=== PATIENT | male | born 1955 | race Caucasian/White ===

== ENCOUNTER 2016-08-24 15:44 | Inpatient (IN) ==
[2016-08-24] MEDS ORDERED: D5 1/2 NS 1,000 ML IV SCH (16:07)
[2016-08-24] MEDS ORDERED: D5 1/2 NS 1,000 ML ONE (16:13)
[2016-08-24 16:43] LABS: MANUAL DIFF NEEDED? NO
[2016-08-24 16:44] LABS: BASO% 0.2 % (0.0-0.8); EOS# 0.01 X1000 (0.0-0.7); EOS% 0.1 % (0.0-10.0); HEMATOCRIT 42.7 % (42.0-52.0); HEMOGLOBIN 14.7 g/dL (14.0-18.0); LYMPH# 1.53 X1000 (1.2-3.4); MCH 29.2 PG (27-31); MCHC 34.4 g/dL (33-37); MCV 84.7 FL (81-99); MONO# 1.21 X1000 (0.11-0.59); MONO% 13.5 % (1.7-9.3); MPV 11.5 FL (7.4-10.4); NEUT% 69.2 % (42.2-75.2); PLT 357 X1000 (130-400); RBC 5.04 XMIL (4.7-6.1)
[2016-08-24] MEDS ORDERED: D5 1/2 NS 1,000 ML IV ONE (16:45)
[2016-08-24 17:27] LABS: ALBUMIN 4.6 g/dL (3.5-5.0); POTASSIUM 4.6 mmol/L (3.5-5.1); TOTAL BILIRUBIN 0.19 mg/dL (0.20-1.00); TOTAL PROTEIN 8.5 g/dL (6.3-8.3)
[2016-08-24] MEDS ORDERED: ZOFRAN IV PRN (18:02)
--- NOTE | 2016-08-24 18:46 | HISTORY AND PHYSICAL ---
CHIEF COMPLAINT: "Have not had urination in 4 days or a bowel movement in 2 days." HISTORY OF PRESENT ILLNESS: He was in my office a few days ago with a gastroenteritis that had started on Sunday. I saw him 2 days ago in the office, and at that time he was having diarrhea. I gave him some Lomotil and some Zofran. When came to the office his blood pressure today it was good, but he said he had not urinated in 4 days, so I sent him to the emergency room as an outpatient to get some IV fluids and some lab work. In the emergency room his blood pressure did fall to 91/46, pulse was 76, but he has been on verapamil which would block his heart rate so he has become hypotensive. His creatinine is 11, and BUN is 126. Sodium is 123. White count 6980, hemoglobin is 14.7. PAST HISTORY: Includes BPH, hyperlipidemia, hypertension. SURGICAL HISTORY: Includes a hernia repair x3, apnea, throat surgery for deviated septum, thumb repair. FAMILY HISTORY: All siblings are currently healthy and alive. Father from a CVA. Mother from unknown causes. Mother did have diabetes. Father did have alcoholism. Father did have gout. SOCIAL HISTORY: Former smoker. Does not smoke or use tobacco now. Occasional alcohol user, drinks about 10 drinks a week. CURRENT MEDICATIONS: Crestor 20 mg at bedtime. Fenofibric acid 135 mg at bedtime. Indapamide 2.5 mg daily. Lisinopril 40 mg twice daily. Verapamil 200 mg daily. Zetia 10 mg daily. REVIEW OF SYSTEMS: Neurological: Denies headaches, seizures, visual problems, hearing problems. Pulmonary: Denies cough, wheezing, shortness of breath. Cardiovascular: Denies chest pains, heart palpitations, PND, orthopnea. GI: Has had nausea, vomiting and diarrhea, but this ended 2 days ago. But he has had no other bowel movements. No urination. : Has had no urination, he says, in 4 days. Psychiatric: Denies any depression. Musculoskeletal: Denies any arthritis symptoms. PHYSICAL EXAMINATION: Blood pressure is 91/46, respirations 14, pulse 76, temperature 98 degrees Fahrenheit, O2 saturations 98%. HEENT: Normocephalic. EOMs intact. PERRLA. Throat clear. LUNGS: Clear to auscultation and percussion without rhonchi, rales, or wheezes. HEART: Regular rate rhythm without murmurs, gallops, or friction rubs. ABDOMEN: Soft. Active bowel sounds. No organomegaly or tenderness. NEUROLOGICAL: Cranial nerves 2-12 intact grossly. Sensory and motor intact. Reflexes 1+ all. RECTAL EXAM: Deferred. EXTERNAL GENITALIA EXAM: Deferred. INTEGUMENT: Shows no lesions consistent with melanoma, other skin cancers. LYMPH NODES: Nonpalpable in cervical, supraclavicular areas. ASSESSMENT: 1. Acute renal failure. 2. Dehydration. 3. Gastroenteritis. 4. Hypertension. 5. Hypotension. PLAN: We will admit for IV fluids. We will consult Nephrology. Certainly with his dehydration, his lisinopril, could contribute to some of his renal failure as well, and his indapamide contribute to some of his dehydration. He said that when he was having diarrhea he was going about every 30 minutes for 2 days. cc: Junaid Sterling Jr, MD
--- NOTE | 2016-08-24 18:50 | EKG Report ---
Test Performed on : 08/24/2016 6:29:29 PM Test Reason : renal failure Blood Pressure : / mmHG Vent. Rate : 074 BPM Atrial Rate : 074 BPM P-R Int : 182 ms QRS Dur : 096 ms QT Int : 378 ms P-R-T Axes : 036 012 027 degrees QTc Int : 419 ms Poor data quality, interpretation may be adversely affected Normal sinus rhythm. Low voltage QRS Cannot rule out Anterior infarct , age undetermined Abnormal ECG No previous ECGs available Unconfirmed Result
[2016-08-24] MEDS: NS 1,000 ML IV SCH (19:35)
[2016-08-25] MEDS: NS 1,000 ML IV SCH ×5 (00:01→20:16)
[2016-08-25 06:18] LABS: BASO% 0.1 % (0.0-0.8); EOS# 0.04 X1000 (0.0-0.7); EOS% 0.5 % (0.0-10.0); HEMATOCRIT 35.3 % (42.0-52.0); HEMOGLOBIN 12.3 g/dL (14.0-18.0); LYMPH# 1.69 X1000 (1.2-3.4); LYMPH% 19.4 % (20.5-51.1); MANUAL DIFF NEEDED? NO; MCH 29.3 PG (27-31); MCHC 34.8 g/dL (33-37); MONO# 1.15 X1000 (0.11-0.59); MONO% 13.2 % (1.7-9.3); MPV 11.1 FL (7.4-10.4); NEUT% 66.8 % (42.2-75.2); PLT 259 X1000 (130-400)
[2016-08-25 07:08] LABS: CALCIUM 7.3 mg/dL (8.8-10.2); POTASSIUM 4.4 mmol/L (3.5-5.1)
--- NOTE | 2016-08-25 07:27 | Diag Imaging Result Doc PS360 ---
CHEST-2 VIEWS - 08/24/2016 INDICATION: abd pain TECHNIQUE: COMPARISON: None FINDINGS: There is scattered linear opacity in the lung bases suggesting scarring or atelectasis. No focal infiltrates, pneumothorax, or pleural effusion. Heart size is grossly normal. IMPRESSION: Scattered atelectasis or scarring in the lung bases but no suspicious infiltrates. Electronically signed by Dario Caba 08/25/2016 7:25 AM
--- NOTE | 2016-08-25 07:34 | Diag Imaging Result Doc PS360 ---
ABDOMEN FLAT/UPRIGHT - 08/24/2016 INDICATION: abd pain TECHNIQUE: COMPARISON: None FINDINGS: There are greater than the normal number of air-fluid levels on the upright exam. There are some moderately gas dilated loops of small bowel measuring up to 3.5 cm. No free air. IMPRESSION: Findings concerning for small bowel ileus or obstruction. Electronically signed by Dario Caba 08/25/2016 7:32 AM
[2016-08-25 07:35] LABS: URINE CULTURE NEEDED? NO; URINE SOURCE CLEAN CATCH
[2016-08-25 07:40] LABS: BILIRUBIN URINE NEGATIVE (NEGATIVE); BLOOD URINE TRACE (NEGATIVE); COLOR YELLOW; GLUCOSE URINE TRACE mg/dL (NEGATIVE); LEUKOCYTES URINE NEGATIVE (NEGATIVE); NITRITE URINE NEGATIVE (NEGATIVE); PROTEIN URINE 30 mg/dL (NEGATIVE); SP GRAVITY URINE 1.011; TURBIDITY URINE HAZY (CLEAR); UROBILINOGEN URINE NORMAL (NORMAL)
[2016-08-25 07:42] LABS: UR EPITHELIAL CELLS <10 /HPF (<10); URINE BACTERIA NEGATIVE /HPF; URINE MICRO REVIEW NEEDED? YES; URINE RBC <10 /HPF (<10); URINE WBC <10 /HPF (<10)
[2016-08-25 07:48] LABS: URINE CASTS NONE SEEN; URINE CRYSTALS CA OXALATE PRESENT; URINE SMALL ROUND CELLS NONE SEEN
[2016-08-25 07:55] LABS: UR CREAT RANDOM 84.1 mg/dL (14-26); UR PROT RANDOM 40.1 mg/dL
[2016-08-25 09:34] LABS: ALLEN TEST YES; BLOOD TYPE ARTERIAL; DRAW SITE R RADIAL; O2(CT) 16.7 mL/dL (15.0-23.0); PCO2(98.6) 31 mmHg (35-45); PO2(98.6) 77 mmHg (60-100); SAMPLE BLOOD; SAO2 94.9 % (95.0-100.0); THB 12.8 g/dL (11.5-17.4)
[2016-08-25 09:37] LABS: MODALITY ROOM AIR; pH(98.6) 7.17 (7.35-7.45)
--- NOTE | 2016-08-25 09:55 | PROGRESS NOTE ---
DATE: 08/25/2016 SUBJECTIVE: The patient says he still has a little abdominal discomfort. It is not severe. He did finally produce some urine. OBJECTIVE: Vital Signs: Blood pressure 94/54, respirations 20, temp 97.6 degrees Fahrenheit. White count is 8710, hemoglobin is 12.3, creatinine actually went up to 12.5 and BUN went up to 132. Sodium loreto from 123-129. Renal ultrasound is pending. Chest x-ray is essentially clear. Abdominal films showed a possible early small bowel obstruction. HEENT: Normocephalic. EOMs intact. PERRLA. Throat clear. Lungs: Clear to auscultation and percussion without rhonchi, rales, or wheezes. Heart: Regular rate rhythm without murmurs, gallops, or friction rubs. Abdomen: Somewhat distended but just slightly, so not much pain on palpation. He has decreased bowel sounds, but I do hear a few. Neurological: Intact grossly. He did put out 500 mL of urine. Urinalysis was essentially normal. ASSESSMENT: 1. Acute kidney injury. 2. Dehydration. 3. Hypotension. 4. Acute gastroenteritis. 5. Possible small bowel obstruction. 6. Hypertension. 7. Had been on lisinopril. PLAN: We will consult GI and surgery. We will get a CT scan of the abdomen without contrast. We will get a urine myoglobin. Appreciate help from Dr. Braxton with Nephrology. cc: Junaid Sterling Jr, MD
--- NOTE | 2016-08-25 11:31 | Diag Imaging Result Doc PS360 ---
EXAM: ABDOMEN/PELVIS W/O CONTRAST HISTORY: ?sbo TECHNIQUE: CT urogram without contrast COMMENT: There is no evidence of bowel obstruction. There is some gas in the rectum. There is diverticulosis in the sigmoid colon without definite evidence of active diverticulitis. The appendix is not distended. There is perinephric stranding bilaterally without evidence of hydronephrosis. There are two small stones in the right collecting system the largest of which measures less than 3 mm. The gallbladder is distended without definite stones. The liver spleen adrenal glands and pancreas are grossly normal in the absence of IV contrast. No abnormal fluid collections are present. The urinary bladder is not particularly distended. There is some spondylosis in the lumbar spine. There is fibrosis and/or atelectasis in the left lower lobe. No previous studies are available for comparison. IMPRESSION: Perinephric stranding which may indicate nephritis. Minimal nephrolithiasis without evidence of ureterolithiasis. No evidence of bowel obstruction. The findings were discussed with Jasper Llanes MD at 08/25/2016 11:20 AM. Electronically signed by Bob Patel 08/25/2016 11:29 AM
--- NOTE | 2016-08-25 12:03 | Diag Imaging Result Doc PS360 ---
US RENAL 2 (RETROPER) COMPLETE - 08/25/2016 INDICATION: decreased renal function TECHNIQUE: COMPARISON: CT abdomen pelvis from earlier 08/25/2016 FINDINGS: The kidneys and urinary bladder are normal. No mass or fluid collection. No hydronephrosis. The right kidney measures 12.5 x 6.2 x 7.2 cm. Cortex measures 14 mm. The left kidney measures 12.5 x 5.1 x 6.5 cm. Cortex measures 13 mm. IMPRESSION: Negative exam. Electronically signed by Dario Caba 08/25/2016 12:01 PM
--- NOTE | 2016-08-25 12:58 | CONSULTATION ---
DATE OF CONSULTATION: 08/25/2016 Mr. Monisha Davalos is a 60-year-old white male, patient of Dr. Junaid Sterling. Approximately 6 days ago he began feeling poorly with significant diarrhea, and 1 day later began experiencing vomiting. He stated that his diarrhea began Sunday night and he would go frequently and quickly it became liquid with no blood. He began vomiting the day after Sunday. He saw Dr. Sterling in his outpatient office on Sunday and was treated with medications including Lomotil. He noticed that he had decreased urine output and was lightheaded the next 24-48 hours, and again saw Dr. Sterling on . He was sent to the emergency department for fluids and it was noted that his labs were grossly abnormal with a creatinine of 12.5 and he was admitted for further evaluation. He feels sore all over. He has mild abdominal pain upper abdomen and he attributes that to vomiting. PAST MEDICAL HISTORY: He has had surgery for sleep apnea. He has had an umbilical hernia repair and also inguinal hernia repairs. He has hypertension and high cholesterol. MEDICATIONS: 1. Zetia. 2. Verapamil. 3. Lisinopril. 4. Indapamide. 5. Nexium. 6. Fenofibrate acid. 7. Krill oil. ALLERGIES: No known drug allergies. SOCIAL HISTORY: He works as a electronics maintenance technician. He does not smoke. He drinks 8-9 beers or wine per week. He is . He lives outside of [place]. His was at the bedside. FAMILY HISTORY: Noncontributory. REVIEW OF SYSTEMS: A 14-point review of systems was performed and except for this recent illness, he was feeling well. PHYSICAL EXAMINATION: General: Mr. Davalos is a middle aged, white male. He is overweight. He looks tired but he is in no acute distress. HEENT Exam: He has no jaundice. No oral lesions. No cervical or supraclavicular lymphadenopathy. Heart: Regular rate. Lungs: Clear to auscultation and percussion bilaterally. Abdomen: His abdomen is mostly soft. He has a well- healed curvilinear incision below his umbilicus. He has well-healed inguinal incisions. He has no recurrent hernia. No evidence of incarcerated hernia. No costovertebral tenderness. No palpable mass. Rectal Exam: Was not performed. He does have palpable femoral pulses. He has no peripheral edema. Neurological: He is alert and oriented x3 and appropriate without focal deficit. DIAGNOSTIC DATA: A CT scan of his abdomen and pelvis performed today was essentially normal. There was no evidence of bowel obstruction or intra-abdominal infection or inflammation. I reviewed it with Dr. Patel. His blood work is abnormal with a marked BUN and creatinine elevation. His white blood cell count is normal. He was acidotic on admission. IMPRESSION: Diarrhea and vomiting with dehydration, and now acute renal failure. He essentially has a normal CT scan of the abdomen. PLAN: No plans for intra-abdominal surgery at this time. If he needs access for acute hemodialysis, certainly we will we will be available. Nephrology has been consulted, as has GI medicine. cc: MD Junaid Rojas Jr, MD
--- NOTE | 2016-08-25 13:04 | CONSULTATION ---
DATE OF CONSULTATION: 08/25/2016 REASON FOR REFERRAL: Possible ileus versus bowel obstruction. HISTORY OF PRESENT ILLNESS: This is a 60-year-old patient who reports onset of symptoms Sunday night. He had onset of diarrhea and vomiting for 2 days. He presented to Dr. Sterling' office as an outpatient and was treated for possible gastroenteritis. He was given Lomotil and Zofran. He presented back to his office yesterday and was found to have elevated BUN and creatinine with low blood pressure. He was admitted to the hospital for further evaluation. He has been seen by Dr. Braxton and workup for acute kidney injury. He had an abdominal x-ray on 2016 that showed a possible small bowel ileus or obstruction. He had an abdominal/pelvis CT scan today that showed perinephric stranding, possible nephritis, minimal nephrolithiasis without evidence of ureterolithiasis with no evidence of bowel obstruction. He had a renal ultrasound which he has just returned from. Findings showed normal kidneys and urinary bladder. No mass or fluid collection. No hydronephrosis and negative exam. Patient reports some generalized abdominal pain. He has not had a bowel movement since admission. He denies vomiting today. He had episodes of nausea and vomiting starting on Sunday night along with diarrhea. He has had a colonoscopy in the past. PAST MEDICAL HISTORY: For BPH, hyperlipidemia, hypertension. PAST SURGICAL HISTORY: Hernia repair, sleep apnea surgery, throat surgery for deviated septum, thumb repair. ALLERGIES: No known drug allergies. HOME MEDICATION LIST: None listed. SOCIAL HISTORY: History of tobacco use, quit. Occasional alcohol use. REVIEW OF SYSTEMS: Per HPI. PHYSICAL EXAM: Vital Signs: Temperature 97.6 degrees, pulse 85, respirations 20, blood pressure 94/54. General: Patient is awake, alert, no acute distress. HEENT: Normocephalic, atraumatic. Pupils equal, round, reactive to light. Sclerae nonicteric. Respiratory: Clear bilaterally. Cardiovascular: Regular rate and rhythm. Abdomen: Some distention, mild pain with palpation. Hypoactive bowel sounds. LABORATORY: Hematology: White count 8.71, hemoglobin 12.3, hematocrit 35.3, MCV 84.0, platelets 259,000. Chemistry: Sodium 129, potassium 4.4, chloride 84, CO2 11. BUN 132, creatinine 12.5, glucose 77, total bilirubin 0.19. AST 88, ALT 15, alkaline phosphatase 43. CT scan and renal ultrasound results as described above. ASSESSMENT AND PLAN: 1. Acute kidney injury. 2. Dehydration. 3. Hypotension. 4. Recent gastroenteritis. PLAN: Continue supportive care. A CT scan showing no evidence of obstruction. Ileus most likely related to recent anti-diarrheal medications. GI will be available and continue to follow. Continue recommendations per Dr. Braxton. I have discussed this case with Dr. Brice. Further plans per him. Thank you for this consultation. Dictated by TITUS Rodriguez for Escobar Brice MD cc: TITUS Byrnes MD Roger H. Moss Jr, MD MTDD
--- NOTE | 2016-08-25 14:30 | CONSULTATION ---
DATE OF CONSULTATION: 08/25/2016 REASON FOR CONSULTATION: Acute kidney injury. HISTORY OF PRESENT ILLNESS: Mr. Davalos is a 60-year-old white male who states he was in his normal health until about 5 days ago, when he began having diarrhea. This began on Sunday afternoon and was followed by nausea and vomiting. He was unable to keep down any p.o. intake over the next 72 hours. In this context, he noted low to no urine output. He did not notice any changes in his urine, but again, the volume has been low. No chills or fevers. No abdominal pain or cramping. No one else has been sick at home. No swelling, chest pain, palpitations, or voiding symptoms etc. He has had difficulty even keeping down his medication during the last week. PAST MEDICAL HISTORY: Hypertension, hyperlipidemia, BPH. HOME MEDICATIONS: Crestor, fenofibrate, indapamide, lisinopril, verapamil, Zetia. ALLERGIES: None. SOCIAL HISTORY: He is a former smoker. He occasionally drinks. FAMILY HISTORY: Noncontributory. REVIEW OF SYSTEMS: Otherwise noncontributory. PHYSICAL EXAMINATION: Vital Signs: Blood pressure 94/54, heart rate 85, respirations 20, afebrile. Intake and output are incomplete. General: In no acute distress. Skin: Warm and dry. HEENT: Conjunctivae are pink. Pupils are equal. Neck: No jugular venous distention. Oropharynx is clear. Oropharynx is moist. Neck: Neck veins are not distended. Trachea is midline. Heart: Regular with a physiologically split S2. No murmurs or rubs. Lungs: Have equal excursion, equal breath sounds. No crackles or wheezes. Abdomen: Soft and nontender, with normal bowel sounds. No organomegaly, masses, or bruits. Extremities: Have no edema, clubbing, or cyanosis. LABORATORY DATA: Sodium 129, potassium 4.4, chloride 84, bicarbonate 11, BUN 132, creatinine 12.5. Hemoglobin 12.3. pH 7.17, pCO2 of 31, and PO2 of 77. IMPRESSION: Acute kidney injury, presumably related to acute gastrointestinal illness resulting in intravascular volume depletion in the context of an DUSTY inhibitor. His urine output has been very low for days, but is slowly improving after he has been receiving IV fluids. He does not have any acute indications for dialysis, so we will simply follow him as he receives IV fluids and reassess his kidney function. Certainly, he could have acute tubular necrosis. Other less likely scenarios include a primary glomerular lesion. We will have him undergo a kidney ultrasound and collect urine electrolytes, urine eosinophils, urinalysis, and renal ultrasound. His ABG was ordered at the time of my assessment and is available. Although he does have significant metabolic acidosis, his respiratory compensation is near target. No changes. cc: MD Junaid Walton Jr, MD
[2016-08-26] MEDS: NS 1,000 ML IV SCH ×5 (04:49→22:06)
[2016-08-26 06:56] LABS: BASO% 0.6 % (0.0-0.8); EOS# 0.04 X1000 (0.0-0.7); EOS% 0.8 % (0.0-10.0); HEMATOCRIT 33.9 % (42.0-52.0); HEMOGLOBIN 11.8 g/dL (14.0-18.0); LYMPH# 1.56 X1000 (1.2-3.4); MANUAL DIFF NEEDED? NO; MCH 29.2 PG (27-31); MCHC 34.8 g/dL (33-37); MCV 83.9 FL (81-99); MONO# 0.67 X1000 (0.11-0.59); MONO% 13.7 % (1.7-9.3); NEUT% 52.9 % (42.2-75.2); PLT 253 X1000 (130-400); RBC 4.04 XMIL (4.7-6.1)
[2016-08-26 07:23] LABS: POTASSIUM 4.3 mmol/L (3.5-5.1)
[2016-08-26 07:37] LABS: CALCIUM 6.8 mg/dL (8.8-10.2)
[2016-08-26] MEDS ORDERED: CALCIUM GLUCONATE 2 GM in NS 100 ML IV ONE (09:12)
--- NOTE | 2016-08-26 12:48 | PROGRESS NOTE ---
DATE: 08/26/2016 SUBJECTIVE: The patient is starting to feel better. He has been eating some. OBJECTIVE: Vital Signs: Blood pressure 94/51; earlier, it was 86/48. Respirations 18, pulse 81, temperature 97.9 degrees Fahrenheit. HEENT: Normocephalic. EOMs intact. PERRLA. Throat clear. Lungs clear to auscultation and percussion without rhonchi, rales, or wheezes. Heart: Regular rate rhythm without murmurs, gallops, or friction rubs. Abdomen is soft with minimal tenderness diffusely. Neurological exam intact grossly. White count 4880, hemoglobin 11.8, hematocrit 33.9, sodium is up from 123 to 129 ; today, it is 135. Potassium is 4.3, chloride which had been low is 74; it came up to 84 and , today, is 102. Anion gap was 19, creatinine which was initially 11 went up to 12.5 and, today, it is 6.5. BUN 126-132. Calcium initially was 9 and then fell to 7.3, and this morning it is 6.8. I do not have an albumin for today but initial albumin was normal. Patient has been acidotic with a pH of 7.17 yesterday. I have continued to give IV fluids. Seems to be improving. ASSESSMENT: 1. Acute kidney injury and renal failure. 2. Dehydration. 3. Acute gastroenteritis. 4. Acidosis. 5. Questionable bowel obstruction now appears to be all right per CT scan. 6. Low calcium, and we will replace with calcium gluconate. cc: Junaid Sterling Jr, MD MTDD
--- NOTE | 2016-08-26 14:51 | PROGRESS NOTE ---
DATE: 08/26/2016 Monisha Davalos is a 60-year-old male who is now hospital day 2. He was hospitalized with acute renal failure and ileus. We are asked to evaluate him because of his ileus. He had evidence of gastroenteritis with diarrhea and nausea and vomiting with dehydration which was felt to cause his acute renal failure in addition to some of his medications. With hydration his creatinine has gone from 12.5 to 6.5 over the last 24 hours. He states that he feels better. His abdomen remains soft without tenderness and I would agree with advancing his diet. cc: MD Junaid Rojas Jr, MD
--- NOTE | 2016-08-26 17:00 | PROGRESS NOTE ---
DATE: 08/26/2016 SUBJECTIVE: He states he is feeling well. He has been out of bed. He has not been walking and no dizziness. OBJECTIVE: Vital Signs: Blood pressure 90/53, heart rate 75, respiration 18, afebrile. Intake 2.8 L. Output not recorded. General: No acute distress. Skin: Warm and dry. Eyes: Conjunctivae are pink. Pupils are equal. Neck: Neck veins are not visible. Heart: Regular without gallops or murmurs. Lungs: Have equal breath sounds. No crackles. Abdomen: Soft, nontender. Bowel sounds are present. Extremities: Have no edema, clubbing, or cyanosis. LABORATORY DATA: Sodium 135, potassium 4.3, chloride 102, bicarbonate 14, BUN 102, creatinine 6.5, calcium 6.8, corrected calcium approximately 7.5. IMPRESSION: 1. Acute kidney injury. Improving with intravenous fluids. No changes are required. 2. Metabolic acidosis. Anion gap is improving progressively. No changes today. His acetone was negative and salicylate was negative. Blood gas with pH 7.17. He had no osmolal gap. The etiology of his acidosis is not clear. Improving however. cc: MD Junaid Walton Jr, MD
--- NOTE | 2016-08-26 17:14 | PROGRESS NOTE ---
DATE: 08/26/2016 SUBJECTIVE: No new complaints. He denies any abdominal pain, abdominal cramps. Has not had any diarrhea or constipation.Vitals: Temperature is 98 degrees Fahrenheit, pulse is 75 per minute, breathing at 18, blood pressure 90/53. Abdomen: Is soft. Bowel sounds are audible. Extremities: No pedal edema noted. LABS: Reviewed. IMPRESSION: Ileus most likely secondary to electrolyte imbalance and gastritis has resolved, iatrogenics, stable with medication has resolved. At this point, no new suggestions. I will be available if needed. cc: MD Junaid Braun Jr, MD
[2016-08-27] MEDS: NS 1,000 ML IV SCH ×4 (06:38→13:39)
[2016-08-27 06:55] LABS: MANUAL DIFF NEEDED? NO
[2016-08-27 07:09] LABS: BASO% 0.4 % (0.0-0.8); EOS# 0.07 X1000 (0.0-0.7); EOS% 1.4 % (0.0-10.0); HEMATOCRIT 34.3 % (42.0-52.0); HEMOGLOBIN 11.6 g/dL (14.0-18.0); LYMPH# 1.89 X1000 (1.2-3.4); LYMPH% 37.5 % (20.5-51.1); MCH 28.6 PG (27-31); MCHC 33.8 g/dL (33-37); MCV 84.5 FL (81-99); MONO# 0.81 X1000 (0.11-0.59); MONO% 16.1 % (1.7-9.3); MPV 11.2 FL (7.4-10.4); NEUT% 44.6 % (42.2-75.2); PLT 267 X1000 (130-400); RBC 4.06 XMIL (4.7-6.1)
[2016-08-27 07:56] LABS: ALBUMIN 3.5 g/dL (3.5-5.0); POTASSIUM 3.9 mmol/L (3.5-5.1); TOTAL BILIRUBIN 0.22 mg/dL (0.20-1.00); TOTAL PROTEIN 6.4 g/dL (6.3-8.3)
[2016-08-27 08:48] LABS: URINE MICRO REVIEW NEEDED? NO; URINE SOURCE VOIDED
[2016-08-27 08:52] LABS: BILIRUBIN URINE NEGATIVE (NEGATIVE); BLOOD URINE NEGATIVE (NEGATIVE); COLOR YELLOW; GLUCOSE URINE 70 mg/dL (NEGATIVE); LEUKOCYTES URINE NEGATIVE (NEGATIVE); NITRITE URINE NEGATIVE (NEGATIVE); PH URINE 5.5; PROTEIN URINE NEGATIVE (NEGATIVE); TURBIDITY URINE CLEAR (CLEAR); UROBILINOGEN URINE NORMAL (NORMAL)
[2016-08-27 08:53] LABS: UR EPITHELIAL CELLS <10 /HPF (<10); URINE BACTERIA NEGATIVE /HPF; URINE RBC <10 /HPF (<10); URINE WBC <10 /HPF (<10)
[2016-08-27] MEDS ORDERED: MAGNESIUM SULFATE 4 GM/S.W.I. 4 GM/100 ML IVPB IV ONE (10:00)
--- NOTE | 2016-08-27 11:35 | PROGRESS NOTE ---
DATE: 08/27/2016 Mr. Monisha Davalos is now hospital day 3, admitted with ileus and acute renal failure from dehydration. He has been rehydrated and his creatinine is quickly returning towards normal. His abdomen is soft. He is tolerating a regular diet and having bowel activity. I agree with a regular diet. cc: MD Junaid Rojas Jr, MD
--- NOTE | 2016-08-27 11:39 | PROGRESS NOTE ---
DATE: 08/27/2016 SUBJECTIVE: The patient says he is feeling better. He has had a normal bowel movement. OBJECTIVE: Vital Signs: Blood pressure is better at 122/66, respirations 18, pulse 71, temperature 98.1 degrees Fahrenheit. HEENT: He is normocephalic. EOMs intact. PERRLA. Throat clear. Lungs: Clear auscultation and percussion without rhonchi, rales, or wheezes. Heart: Regular rate and rhythm without murmurs, gallops, or friction rubs. Abdomen: Soft. Active bowel sounds. No organomegaly or tenderness. Neurological: Cranial nerves 2 through 12 intact grossly. Sensory and motor intact. Reflexes 1+ all. Overall much better. LABORATORY: Still shows some dehydration. White count is 5,040, hemoglobin 11.6. Sodium is up from 123 to 142. Potassium 3.9. Calcium is 7.0. Magnesium is low at 1.0. BUN 63, creatinine is 2.2. ASSESSMENT: 1. Acute kidney injury. 2. Dehydration. 3. Acute gastroenteritis. 4. Abdominal pain. 5. Hyponatremia. 6. Hypomagnesemia. 7. Acidosis. 8. Question of bowel obstruction, now ruled out. PLAN: We will give him some IV magnesium sulfate. Check magnesium level in the morning. If BUN and creatinine continue to improve and he continues to improve, perhaps home in the morning. The patient still shows laboratory evidence of dehydration but is getting better. cc: Junaid Sterling Jr, MD
[2016-08-28] MEDS: NS 1,000 ML IV SCH ×2 (02:51→08:46)
[2016-08-28 07:49] VITALS: BP 143/85
[2016-08-28 08:38] LABS: AGAP 12; BUN 24 mg/dL (8-22); CHLORIDE 104 mmol/L (98-107); COSMO 282; POTASSIUM 3.9 mmol/L (3.5-5.1); SODIUM 139 mmol/L (136-145); TCO2 23 mmol/L (25-35)
--- NOTE | 2016-08-28 11:59 | PROGRESS NOTE ---
DATE: 08/28/2016 SUBJECTIVE: Patient is sitting up on the side of the bed. He states that he is to go home later today. OBJECTIVE: Vital Signs: Temperature 98.4 degrees, pulse 69, respiratory rate 20, blood pressure 143/85. Intake 480 mL. Output has not been measured. He is voiding without difficulty. General: This is a middle-aged gentleman sitting up on the side of the bed in no acute distress. HEENT: Normocephalic, atraumatic. Oral mucosa is moist. Neck: Supple. Trachea midline. Cardiovascular: Regular rate and rhythm. Pulmonary: Equal excursion. He is clear bilaterally. Abdomen: Soft, with positive bowel sounds. : Not inspected. He is voiding. Extremities: No clubbing, cyanosis, or edema. Integumentary: Skin is warm and dry. LAB DATA: WBC of 5.0. Sodium 142, potassium 3.9, CO2 20, BUN 63, creatinine 2.2. ASSESSMENT AND PLAN: Acute kidney injury. Significantly improved over the last 48 hours with IV fluids and holding of ACEI. I did discuss with the patient the importance of holding this medication if he is sick with nausea and vomiting with a stomach virus as well as if he is taking his medication when he is outside in the heat that he needs to be drinking extra fluids. We will follow with the patient in 2 weeks with labs to make sure that his renal function has indeed returned normal. Otherwise, he can follow with his PCP. Dictated by TITUS Bar for John Braxton MD Seen, data reviewed, discussed with Dave Ayala on 08/28/16. I agree with the above assessment and plan of care. cc: MD Junaid Walton Jr, MD MTDD
--- NOTE | 2016-08-29 06:30 | DISCHARGE SUMMARY ---
ADMISSION DATE: 08/24/2016 DISCHARGE DATE: 08/28/2016 FINAL DIAGNOSES: 1. Acute kidney injury. 2. Dehydration. 3. Abdominal pain. 4. Acute gastroenteritis. 5. Low magnesium. 6. Hypotension. 7. Hypertension. 8. Hyperlipidemia. 9. Hyponatremia. 10. Hypomagnesemia. 11. Hypocalcemia. 12. Hypalbuminemia. DISCHARGE MEDICATIONS: He will be discharged home on his home medications including Crestor, Trilipix, indapamide, lisinopril and verapamil, as well as Zetia, with the exception that we will hold his lisinopril and his indapamide until I see him back in the office, and we will make a decision at that time. HOSPITAL COURSE: The patient had presented to my office with a 2-day history of diarrhea with some nausea and vomiting. I have treated him with Zofran and Lomotil, and 2 days later he came back to the office and said he was not getting better, though he was not having any more diarrhea. He was just having abdominal discomfort at that time and decided that he might be a little dehydrated and sent him to the hospital emergency room just for some IV fluids and some lab work and started IV fluids, but noticed his creatinine was 11 and his BUN was 126. His sodium was also low at 126 at that time. Decided to put him in the hospital at that time and consulted Nephrology. The patient was still having some abdominal pain, though no diarrhea at that time. He said that he had not put out any urine for 4 days. So he did have some anuria. Slowly with the IV fluids he improved but 1 x-ray read by radiologist was suspicious for bowel obstruction, so I did consult Surgery, Dr. Llanes and Gastroenterology Dr. Brice, as well as Nephrology, Dr. Braxton who did a CT scan of his abdomen and bowel obstruction was not seen. Because he was acidotic during this time, with a pH of 7.19, I certainly want to make sure that he did not have any ischemic bowel, but this seems to have all resolved. Magnesium level was a little low and I did give him some magnesium, and we will check this again in the office. Creatinine is back to 1.1 and he is eating and drinking, urinating and having normal bowel movements now. I do think that for the most part he just got very quickly dehydrated and severely dehydrated with acute kidney injury, and that has resolved. His calcium had been low as well, and so was his albumin. PHYSICAL EXAMINATION: Vital Signs: Blood pressure is 143/85, pulse 69, temperature 98.4 degrees Fahrenheit. O2 saturations 97%. He is now having normal bowel movements and is urinating. HEENT: Normocephalic. EOMs intact. PERRLA. Throat clear. Lungs: Clear to auscultation and percussion without rhonchi, rales, or wheezes. Heart: Regular rate and rhythm without murmurs, gallops, or friction rubs. Abdomen: Soft. Active bowel sounds. No organomegaly or tenderness at this time. Neurological: Intact grossly. ASSESSMENT AND PLAN: Will send home on a regular diet. We will see back in the office in about a week with a chemistry profile and a CBC. We will get a magnesium level at that time as well. cc: Junaid Sterling Jr, MD
== END 2016-08-28 10:35 | disposition home or self-care (01) ==
LOC: INTOOBSV 18:33 → EDIPHOLD 18:33 → OBSVTOIN 18:33 → 3N 19:50
PROVIDERS: ADMIT Emergency Medicine; ATTEND Emergency Medicine